=== PATIENT | female | born 1980 | race Caucasian/White ===

== ENCOUNTER 2023-01-21 05:49 | Emergency (ER) | payer BC ==
[~2023-01-21] VITALS: Ht 160 cm; Wt 99.3 kg
[2023-01-21 06:07] VITALS: BP_SYST 139
--- NOTE | 2023-01-21 06:14 | NUR ---
Placed in room 2 . Placed on neon sign installer, blood pressure machine and pulse oximeter. To gown for exam. Side rails up. Report given to John.
[2023-01-21] MEDS ORDERED: MORPHINE 4 MG INJ. 4 MG/ML VIAL IVP ONE (06:15)
[2023-01-21] MEDS ORDERED: NACL 0.9% 1,000 ML IV ONE (06:15)
[2023-01-21] MEDS ORDERED: KETOROLAC TROMETHAMINE 30 MG VIAL IVP ONE (06:15)
--- NOTE | 2023-01-21 06:15 | NUR ---
ER at bedside examining patient.
[2023-01-21 06:37] LABS: BILIRUBIN,URINE NEGATIVE (NEGATIVE); BLOOD, URINE 3+ (NEGATIVE); COLOR,URINE YELLOW (YELLOW); GLUCOSE,URINE NEGATIVE (NEGATIVE); KETONES,URINE NEGATIVE (NEGATIVE); LEUKOCYTE ESTERASE ,URINE 1+ (NEGATIVE); NITRITE, URINE POSITIVE (NEGATIVE); PH,URINE 6.5 (5.0-8.0); PROTEIN URINE 3+ (NEGATIVE)
[2023-01-21 06:39] LABS: CLARITY/URINE CLOUDY (CLEAR)
--- NOTE | 2023-01-21 06:40 | NUR ---
PT OFF TO CT AT THIS TIME
[2023-01-21 06:41] LABS: BACTERIA,URINE MANY /HPF (None Seen); RBC,URINE 20-50 /HPF (0-3); WBC,URINE >100 /HPF (0-3)
[2023-01-21 07:11] LABS: CALCIUM 9.2 mg/dL (8.4-11.0); CREATININE 0.79 mg/dL (0.55-1.30)
--- NOTE | 2023-01-21 07:14 | NUR ---
CHILO TO EDER(RN)
[2023-01-21 07:15] LABS: ALBUMIN 3.6 g/dL (3.4-4.8); TOTAL BILIRUBIN 0.3 mg/dL (0.0-1.0)
--- NOTE | 2023-01-21 07:15 | NUR ---
EDISONAR TO JANKI(LEENA)
[2023-01-21 07:23] LABS: BASOPHILS # (AUTO) 0.1 K/uL (0.0-0.2); BASOPHILS % (AUTO) 0.6 % (0.0-2.0); EOSINOPHILS # (AUTO) 0.2 K/uL (0.0-0.4); EOSINOPHILS % (AUTO) 1.7 % (0.0-4.0); HEMATOCRIT 42.4 % (36-48); HEMOGLOBIN 14.4 g/dL (12.0-16.0); LYMPHOCYTES # (AUTO) 2.8 K/uL (1.0-5.5); LYMPHOCYTES % (AUTO) 20.4 % (20.5-51.5); MEAN CORPUSCULAR HEMOGLOBIN 30 pg (27-31); MEAN CORPUSCULAR HGB CONC 34 % (32-36); MEAN CORPUSCULAR VOLUME 88 fL (79.0-98.0); MONOCYTES # (AUTO) 0.9 K/uL (0.0-1.0); MONOCYTES % (AUTO) 6.7 % (1.7-9.3); NEUTROPHILS # (AUTO) 9.7 K/uL (1.8-7.7); NEUTROPHILS % (AUTO) 70.6 % (40.0-70.0); PLATELET COUNT (AUTO) 223 K/uL (130-430); RED BLOOD CELL COUNT(AUTO) 4.83 MIL/uL (4.2-6.2); RED CELL DISTRIBUTION WIDTH 13.3 % (9.0-15.0); WHITE BLOOD COUNT (AUTO) 13.7 K/uL (4.8-10.8)
[2023-01-21] MEDS ORDERED: cefTRIAXone 1 GM IVPB PREMIX 50 ML IV ONE (08:45)
[2023-01-21] MEDS ORDERED: CIPR500T5 PO (09:55)
[2023-01-21 10:25] VITALS: BP_SYST 135
--- NOTE | 2023-01-21 10:26 | NUR ---
Patient given written and verbal discharge instructions and verbalizes understanding. ER MD PAN discussed with patient the results and treatment provided. Patient in stable condition. ID arm band removed. IV catheter removed intact and dressing applied, no active bleeding. Rx of CIPRO given. Patient educated on pain management and to follow up with PMD. Pain Scale 2/10. Opportunity for questions provided and answered. Medication side effect fact sheet provided.
== END 2023-01-21 10:26 | disposition home or self-care (01) ==
LOC: SED 05:49
DX: N10 Acute pyelonephritis (principal); R11.2 Nausea with vomiting, unspecified; R10.9 Unspecified abdominal pain; K21.9 Gastro-esophageal reflux disease without esophagitis; I10 Essential (primary) hypertension; Z88.2 Allergy status to sulfonamides; Z79.899 Other long term (current) drug therapy
CPT/HCPCS: 99285; 74176; 96365; 96375; 96361; 80053; 81000; 85025; 87086; 36415; 76376; J0696; J1885; J2270; J7030

== ENCOUNTER 2023-03-01 07:13 | Emergency (ER) | payer BC ==
[~2023-03-01] VITALS: Ht 160 cm; Wt 97.1 kg
[~2023-03-01 07:13] MED LIST: CIPR500T5 PO
[2023-03-01 07:20] VITALS: BP_SYST 137
--- NOTE | 2023-03-01 07:26 | NUR ---
Patient to ER bed 6 to gown for evaluation. Side rails up. Report given to JANKI STERN.
--- NOTE | 2023-03-01 07:30 | NUR ---
PT BIB SELF AWAKE AND ALERT AOX4. PT C/O OF SOB, BODTY ACHE AND COUGH X2 DAYS. PT DENIES N/V/D.
--- NOTE | 2023-03-01 07:31 | NUR ---
MD DR HURST AT BEDSIDE
[2023-03-01 08:02] LABS: BASOPHILS % (AUTO) 0.3 % (0.0-2.0); EOSINOPHILS # (AUTO) 0.5 K/uL (0.0-0.4); HEMATOCRIT 41.2 % (36-48); HEMOGLOBIN 14.3 g/dL (12.0-16.0); LYMPHOCYTES # (AUTO) 1.5 K/uL (1.0-5.5); LYMPHOCYTES % (AUTO) 14.2 % (20.5-51.5); MEAN CORPUSCULAR HEMOGLOBIN 30 pg (27-31); MEAN CORPUSCULAR HGB CONC 35 % (32-36); MEAN CORPUSCULAR VOLUME 88 fL (79.0-98.0); MONOCYTES % (AUTO) 9.6 % (1.7-9.3); NEUTROPHILS # (AUTO) 7.5 K/uL (1.8-7.7); NEUTROPHILS % (AUTO) 70.9 % (40.0-70.0); PLATELET COUNT (AUTO) 177 K/uL (130-430); RED CELL DISTRIBUTION WIDTH 12.9 % (9.0-15.0); WHITE BLOOD COUNT (AUTO) 10.5 K/uL (4.8-10.8)
[2023-03-01 08:23] LABS: ANION GAP 9 (5-15); CALCIUM 9.1 mg/dL (8.4-11.0); CHLORIDE 103 mmol/L (98-107); CREATININE 0.76 mg/dL (0.55-1.30); GFR AFRICAN AMERICAN 107 mL/min (>90); GLUCOSE 101 mg/dL (70-99); UREA NITROGEN, BLOOD 14 mg/dL (8-21)
[2023-03-01 08:30] LABS: ALANINE AMINOTRANSFERASE 26 U/L (12-78); ALBUMIN 3.7 g/dL (3.4-4.8); ASPARTATE AMINOTRANSFERASE 14 U/L (10-37); TOTAL BILIRUBIN 0.6 mg/dL (0.0-1.0)
[2023-03-01] MEDS ORDERED: PSEU30TA36 PO (09:21)
--- NOTE | 2023-03-01 09:54 | NUR ---
Patient given written and verbal discharge instructions and verbalizes understanding. ER MD DR HURST discussed with patient the results and treatment provided. Patient in stable condition. ID arm band removed. Rx of SUDFED given. Patient educated on pain management and to follow up with PMD. Pain Scale 2/10. Opportunity for questions provided and answered. Medication side effect fact sheet provided.
[2023-03-01 10:00] VITALS: BP_SYST 135
== END 2023-03-01 09:54 | disposition home or self-care (01) ==
LOC: SED 07:13
DX: J40 Bronchitis, not specified as acute or chronic (principal); R50.9 Fever, unspecified; R05.9 Cough, unspecified; R06.02 Shortness of breath; I10 Essential (primary) hypertension; K21.9 Gastro-esophageal reflux disease without esophagitis; Z88.2 Allergy status to sulfonamides; Z79.899 Other long term (current) drug therapy; Z20.822 Contact with and (suspected) exposure to COVID-19
CPT/HCPCS: 36415; 71045; 80053; 83605; 83880; 84484; 84703; 85025; 85379; 93005; 99285